=== PATIENT | male | born 1995 | race Caucasian/White ===

== ENCOUNTER 2019-10-01 13:44 | Emergency (ER) | payer BC ==
[2019-10-01] MEDS ORDERED: Take Home: Amoxicillin/Clavulanate K 875-125 MG Tab, 2 Tab Pack PO ONE (14:20)
--- NOTE | 2019-10-02 01:25 | EDM.PDOC ---
ED HPI GENERAL MEDICAL PROBLEM - General Chief Complaint: Bite:Animal, Insect Stated Complaint: DOG BITE Time Seen by Provider: 10/01/19 13:50 Source of Information: Reports: Patient History Limitations: Reports: No Limitations - History of Present Illness INITIAL COMMENTS - FREE TEXT/NARRATIVE: Pt. presents to ER with complaints of dog bite to R upper arm. Law enforcement was able to locate the animal and they state that the dog was immunized for rabies in January of 2019. Pt. states that he thinks his tetanus is up to date, but states that he will find out tomorrow from his mother; he states that he will either come to ER or [facility] for TDAP if not. Pt. denies any injury other than what is isolated to his R upper arm area. No numbness/tingling to the distal portion of the extremity. He states that this happened just before coming to ER. He states the he was just walking and was attempting to escape the dogs. He denies coming in contact with them in the past. He and the dog's owners report that the dogs have otherwise been acting normally. Onset Date: 10/01/19 Location: Reports: Upper Extremity, Right Quality: Reports: Ache, Sharp, Throbbing Severity: Moderate Right Upper Arm Pain Score (Numeric/FACES): 1 - Related Data Allergies Allergy/AdvReac Type Severity Reaction Status Date / Time aloe vera Allergy Other Verified 10/01/19 14:20 Home Meds: Home Meds . [No Known Home Meds] 10/01/19 [History] Past Medical History - Past Health History Medical/Surgical History: Denies Medical/Surgical History Social & Family History - Tobacco Use Smoking Status *Q: Never Smoker ED ROS GENERAL - Review of Systems Review Of Systems: Comprehensive ROS is negative, except as noted in HPI. ED EXAM, GENERAL - Physical Exam Exam: See Below Exam Limited By: No Limitations General Appearance: Alert, WD/WN, No Apparent Distress, Mild Distress Extremities: Other (several small, superficial lacerations/abrasions noted to R upper arm/bicep area. All are subcentimeter in length and all are superficial. Surrounding skin is mildly erthematous. Some start of mild ecchymosis noted to area. CMS intact. ) Neurological: Alert, Oriented, CN II-XII Intact, Normal Cognition, Normal Gait Skin Exam: Warm, Dry, Wound/Incision (see above) Course - Vital Signs Last Recorded V/S: Last Vital Signs Temp 36.3 C 10/01/19 13:50 Pulse 118 H 10/01/19 13:50 Resp 16 10/01/19 13:50 BP 139/94 H 10/01/19 13:50 Pulse Ox 98 10/01/19 13:50 - Orders/Labs/Meds Meds: Medications Discontinued Medications Generic Name Dose Route Start Last Admin Trade Name Kaylynn PRN Reason Stop Dose Admin Amoxicillin/Clavulanate Potassium 2 packet 10/01/19 14:20 10/01/19 14:40 Take Home: Amox/Clavulanate 875-12, 2 Tab Pac PO 10/01/19 14:21 2 packet ONETIME ONE Administration Departure - Departure Time of Disposition: 15:00 Disposition: Home, Self-Care 01 Condition: Good Clinical Impression: Dog bite of arm - Discharge Information Instructions: Animal Bite, Adult, [id number], Amoxicillin; Clavulanic Acid tablets Referrals: PCP,None [Primary Care Provider] - Forms: ED Department Discharge Additional Instructions: Augmentin 875mg 1 twice daily for 7 days We will not start the rabies series as the animal had a rabies shot 09/16/18. The dog will be observed at the vet clinic for 10 days for signs of rabies. We will let you know if we need to start the rabies series. Change dressing once daily. Find out about your tetanus status. If you haven't had it within 10 years, you can have this done in ER or at public health. Return to ER if redness, swelling, or discharge from the area. Sepsis Event Note - Evaluation Sepsis Screening Result: No Definite Risk - Focused Exam Vital Signs: Vital Signs Temp Pulse Resp BP Pulse Ox 10/01/19 13:50 36.3 C 118 H 16 139/94 H 98 Date Exam was Performed: 10/02/19 Time Exam was Performed: :20 - Problem List Review Problem List Initiated/Reviewed/Updated: Yes - Assessment/Plan Plan: Law enforcement has been in contact with the vet. There were 2 dogs involved. Pt. states that they were somewhat fighting together and the one that bit him has it's rabies. The other dog's rabies was done on September 16, 2018. Although patient is sure this animal did not bite him, it sounds as though both animals will be observed for 10 days. Pt. is at low risk for rabies as the animal's vaccine ran out 14 days ago. Pt. will be prophylactically treated with Augmentin 875mg twice daily for 7 days. Again, he will be in contact should he need tetanus booster. The bites to the arm were copiously irrigated with NS and chlorhexidine and were left open to close via secondary intention. Tylenol and ibuprofen as needed for discomfort.
== END 2019-10-01 14:40 | disposition home or self-care (01) ==
LOC: VM.ED 13:44
DX: S40.871A Other superficial bite of right upper arm, initial encounter (principal); Z91.09 Other allergy status, other than to drugs and biological substances; W54.0XXA Bitten by dog, initial encounter
CPT/HCPCS: 99283; A9270-GY

== ENCOUNTER 2022-10-09 12:42 | Emergency (ER) | payer BC | END 2022-10-09 14:30 | disposition other institution (70) | LOC: VM.ED 12:42 | DX: S43.004A Unspecified dislocation of right shoulder joint, initial encounter (principal); Z91.048 Other nonmedicinal substance allergy status; X50.0XXA Overexertion from strenuous movement or load, initial encounter | CPT/HCPCS: 99283 ==